=== PATIENT | female | born 1950 | race Caucasian/White ===

== ENCOUNTER → 2016-03-10 | Outpatient (CLI) | payer MEDICARE, BC ==
--- NOTE | 2016-03-10 15:35 | US ---
EXAMINATION TYPE: US kidneys/renal and bladder DATE OF EXAM: 03/10/2016 12:43 PM COMPARISON: Correlation CT 02/09/2016 CLINICAL HISTORY: 65-year-old female with hematuria, patient states gross hematuria. TECHNIQUE: Multiple sonographic images of the kidneys and bladder were obtained. FINDINGS: Right Kidney: 9.6 x 4.3 x 4.4 cm Left Kidney: 10.9 x 4.8 x 4.9 cm No evidence for hydronephrosis on either side. No gross abnormality of the urine distended bladder. Both ureteral jets are visualized. IMPRESSION: No hydronephrosis. Both ureteral jets are visualized. Bladder grossly unremarkable.
== END | disposition home or self-care (01) ==
LOC: RADUSWWP 12:24
PROVIDERS: ATTEND Internal Medicine
DX: R31.0 Gross hematuria (principal)
CPT/HCPCS: 76770

== ENCOUNTER 2016-08-17 07:53 | Day surgery (SDC) | payer MEDICARE, BC ==
[2016-08-15 14:04] VITALS: BMI 30.4
[~2016-08-17 07:53] MED LIST: LACTATED RINGERS 1,000 ML IV SCH; LIDOCAINE 1% 20 ML VIAL (10MG/ML) FOR IV START INTRADERMA PRN
[2016-08-17 08:10] VITALS: RESP 16; TEMP 97.9
[2016-08-17 08:21] LABS: Glucose,Whole Blood 122 mg/dL (75-99)
[2016-08-17] MEDS ORDERED: LIDOCAINE 1% INJ 10MG/ML (20 ML MDV) ONE (08:40)
[2016-08-17] MEDS ORDERED: PROPOFOL 10 MG/ML 20 ML VIAL IV ONE (08:40)
[2016-08-17 09:18] VITALS: PULSE 58
[2016-08-17 09:58] VITALS: BP 166/95
--- NOTE | 2016-08-17 10:25 | P.OP ---
Date of Procedure: 08/17/16 Preoperative Diagnosis: GERD Obesity BMI 30.5 History of coronary artery disease Postoperative Diagnosis: Hillgrade 3 hiatal hernia Procedure(s) Performed: EGD with biopsy Implants: Anesthesia: MAC Surgeon: Marie Galeas Pathology: other Condition: stable Disposition: PACU Indications for Procedure: 65 years old female presents with persistent reflux refractory to medications. Informed consent obtained and she elected to undergo EGD with possible biopsy. Operative Findings: Hill grade 3 hiatal hernia Description of Procedure: A timeout was performed to verify the correct patient and correct procedure. Patient was on continuous vitals and pulse ox monitoring throughout the procedure. She was placed in lateral decubitus position and an oral bite block was inserted. A well-lubricated Olympus upper endoscope was passed orally. The esophagus was intubated without difficulty. The vocal cords were visualised and protected at all times. The endoscope was passed beyond the pylorus into the first and second portion of the duodenum. No abnormality was noted in the duodenum mucosa. Two random biopsies were taken from the gastric antrum using cold biopsy forceps. The scope was then retroflexed. Hiatal hernia was noted which was Hill Grade III No mass, active ulcer or bleeding stigmata noted within the gastric lumen. The GE junction is measured at 36 cm from the incisors and diaphragmatic impression at 40 cm . No evidence of reflux esophagitis. The endoscope was gradually withdrawn. No abnormality identified in the esophagus. Patient tolerated the procedure well and was taken to post anesthesia care unit in stable condition. FINAL DIAGNOSIS: 1. Hill Grade 3 Hiatal hernia 2. Gastro esophageal reflux disease 3. Morbid Obesity 4. History of UT SPECIMEN: Antral biopsy GE junction biopsy RECOMMENDATION: 1. Esophageal manometry test 2. Robotic hiatal hernia repair with partial/full fundoplication Final Pathologic Diagnosis A. GASTRIC MUCOSA, ANTRUM (ENDOSCOPIC BIOPSY): NO SIGNIFICANT DIAGNOSTIC ALTERATIONS. NO HELICOBACTER-LIKE ORGANISMS IDENTIFIED BY IMMUNOSTAIN (CONTROLS APPROPRIATE). B. GASTRIC MUCOSA FROM DISTAL ESOPHAGUS (ENDOSCOPIC BIOPSY): NO SIGNIFICANT DIAGNOSTIC ALTERATIONS; NO GOBLET CELL METAPLASIA, DYSPLASIA OR MALIGNANCY IDENTIFIED.
== END 2016-08-17 10:13 | disposition home or self-care (01) ==
LOC: ORWHC2ENDO 07:53
PROVIDERS: ATTEND Surgery
DX: K44.9 Diaphragmatic hernia without obstruction or gangrene (principal); K21.9 Gastro-esophageal reflux disease without esophagitis; E66.01 Morbid (severe) obesity due to excess calories; Z68.30 Body mass index [BMI] 30.0-30.9, adult; I25.10 Atherosclerotic heart disease of native coronary artery without angina pectoris; J45.909 Unspecified asthma, uncomplicated; I10 Essential (primary) hypertension; Z87.891 Personal history of nicotine dependence; I25.2 Old myocardial infarction; E11.9 Type 2 diabetes mellitus without complications; Z79.84 Long term (current) use of oral hypoglycemic drugs; Z79.82 Long term (current) use of aspirin; Z79.1 Long term (current) use of non-steroidal anti-inflammatories (NSAID); Z79.899 Other long term (current) drug therapy; Z88.0 Allergy status to penicillin; Z79.51 Long term (current) use of inhaled steroids
CPT/HCPCS: 88305; 88342; 43239; J2001; J2704

== ENCOUNTER → 2017-02-16 | Outpatient (CLI) | payer MEDICARE, BC ==
--- NOTE | 2017-02-16 15:42 | FL ---
EXAMINATION TYPE: FL barium swallow DATE OF EXAM: 02/16/2017 COMPARISON: NONE HISTORY: Epigastric pain history of hiatal hernia TECHNIQUE: A double contrast UGI study is performed. FINDINGS: Esophagus normal caliber. No intraluminal extrarenal defect is evident. There is some mild hesitancy of contrast passing through the esophagus into the stomach. However, a persistent stenosis at the gastroesophageal junction is not evident. Note is made of some mild presbyesophagus with terti alayna contractions. In the horizontal drinking position there is a essentially nonmovement of the contrast through the es ophagus. Hiatal hernia was not demonstrated during the exam. 1 minute 30 seconds of fluoroscopy time was provided for the procedure. 16 images are obtained. Fluor oscopy and overhead radiographs are obtained. IMPRESSIONS: 1. Poor propulsion in the horizontal drinking position. 2. No hiatal hernia is evident. 3. There is hesitancy without stenosis of contrast passing through the gastroesophageal junction.
== END | disposition home or self-care (01) ==
LOC: RADFLWHC 10:57
PROVIDERS: ATTEND Surgery Plastic and Reconstructive Surgery
DX: K22.8 Other specified diseases of esophagus (principal); R93.3 Abnormal findings on diagnostic imaging of other parts of digestive tract
CPT/HCPCS: 74220

== ENCOUNTER → 2018-04-03 | Outpatient (CLI) | payer MEDICARE, BC ==
--- NOTE | 2018-04-04 22:42 | MR ---
EXAMINATION TYPE: MR angio head wo/neck wo/w con DATE OF EXAM: 04/03/2018 COMPARISON: Correlation outside CT neck report dated 03/27/2018 from [facility] raising question of a 5 to 6 mm aneurysm of the distal right ICA. HISTORY: 67-year-old female Mass / Aneurysm Technique: High-resolution 3-D [id number] imaging of the [place]. Subsequently 2-D and 3 -D [id number] imaging of the carotid vessels of the neck. Subsequent pre and postcontrast coronal sequences were obtained with administration of 6 mL IV Gadavist. Rotational 3-D reconstructions gene rated on a dedicated independent workstation. FINDINGS: HEAD: The left vertebral artery is dominant. The V4 segment right vertebral artery is diminutive and termin ates as a posterior inferior cerebellar artery. 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 The aneurysm projects medially. There is an additional saccular aneurysm from the ophthalmic division of the right internal carotid a rtery projecting right superolaterally. Refer to series 203 image 3. The saccular aneurysm has a neck measuring 3.4 mm wide and the aneurysm measures 7.7 x 6.1 mm. No additional aneurysmal change, significant stenosis, or arterial occlusion is seen. NECK: Again, dominant left vertebral artery. There may be a moderate focal stenosis at the origin of the le ft vertebral artery. Conventional arch vessel branching anatomy. Suggestion of mild eccentric atherosclerotic plaque at the distal left common carotid artery. This ca uses only mild, 25% vessel narrowing. Otherwise, the bilateral common and internal carotid arteries are patent without significant stenosis . IMPRESSION: Head: 1. Dominant left vertebral artery. The diminutive right vertebral artery terminates as a PICA. 2. A 7.7 x 6.1 mm saccular aneurysm projecting right superolaterally from the ophthalmic division of the right ICA. This has a 3.4 mm wide aneurysm neck. 3. A 4.7 x 3.0 mm saccular aneurysm projecting medially of the clinoid segment left ICA just prior to the ophthalmic artery takeoff. NECK: 1. Again, dominant left vertebral artery. There may be a moderate focal stenosis at the origin of the left vertebral artery. 2. Eccentric plaque at the distal left common carotid artery causing mild, 25% distal left CCA stenos is. 3. No hemodynamically significant ICA stenosis on either side.
== END | disposition home or self-care (01) ==
LOC: RADMRIMAIN 11:58
PROVIDERS: ATTEND Family Medicine
DX: I65.22 Occlusion and stenosis of left carotid artery (principal); I67.1 Cerebral aneurysm, nonruptured
CPT/HCPCS: 70544; 70549; A9585